=== PATIENT | female | born 1965 | race Caucasian/White ===

== ENCOUNTER 2016-07-11 09:10 | Emergency (ER) | payer BC ==
[2016-07-11 09:37] VITALS: TEMP 98.4
--- NOTE | 2016-07-11 09:40 | ED.PDOC ---
History of Present Illness - General Chief Complaint: General Stated Complaint: left arm pain,pain behind left shoulder blade Time Seen by Provider: 07/11/16 09:11 Source: patient, RN notes reviewed, Vital Signs reviewed Exam Limitations: no limitations - History of Present Illness Initial Comments: Patient reports she woke up about 7:30am today and noticed some dull pain in her L arm. Went back to sleep for a bit. When she woke up @ 8am she noticed a severe, sharp pain under her L shoulder blade. Pain is better now but is still present. She did have some SOB with the pain but no chest pain, nausea or diaphoresis. No similar episodes in past. Denies any injury or unusual activity yesterday. Timing/Duration: 1-3 hours Severity: mild Improving Factors: nothing Worsening Factors: nothing Associated Symptoms: shortness of breath Allergies/Adverse Reactions: Allergies NO KNOWN ALLERGY Allergy (Verified 07/11/16 09:29) Home Medications: Ambulatory Orders NK [NK] 07/11/16 Review of Systems - Review of Systems Constitutional: States: no symptoms reported. Denies: chills, diaphoresis, fever, malaise EENTM: States: no symptoms reported Respiratory: States: short of breath Cardiology: States: no symptoms reported. Denies: chest pain, edema, palpitations, syncope Gastrointestinal/Abdominal: States: no symptoms reported. Denies: abdominal pain, nausea, vomiting Musculoskeletal: States: see HPI, back pain Skin: States: no symptoms reported Neurological: States: no symptoms reported. Denies: numbness, paresthesia, tingling, tremors, weakness All other Systems: No Change from Baseline Past Medical History (General) - Patient Medical History Hx Congestive Heart Failure: No Hx Diabetes: No Surgical History: Hysterectomy - Vaccination History Hx Influenza Vaccination: No - Social History Hx Tobacco Use: No Family Medical History - Family History Mother Family History: Unknown Living Status: Unknown Physical Exam - Physical Exam General Appearance: Alert, Comfortable, No apparent distress, Well Developed, Well Groomed, Well Hydrated, Well Nourished Neck: non-tender, full range of motion, supple, normal inspection Respiratory: chest non-tender, lungs clear, normal breath sounds, no respiratory distress, no accessory muscle use Cardiovascular/Chest: regular rate, rhythm, no edema, no gallop, no JVD, no murmur Back Exam: normal inspection, no CVA tenderness, no vertebral tenderness, other - No palpable area of tenderness Extremity: normal range of motion - No pain with ROM of shoulder, non-tender, normal inspection, no pedal edema Neurologic: no motor/sensory deficits, alert, normal mood/affect, oriented x 3 Skin Exam: normal color, warm/dry Progress - Progress Progress: 07/11/16 11:16 Patient is feeling better. Initial cardiac workup is normal. Most likely musculoskeletal in nature. - Results/Orders Results/Orders: Laboratory Tests 07/11/16 07/11/16 09:54 09:54 WBC 4.6 L RBC 4.57 Hgb 13.5 Hct 39.5 MCV 86.4 MCH 29.6 MCHC 34.2 RDW 12.6 Plt Count 137 MPV 7.0 L Absolute Neuts (auto) 2.60 Absolute Lymphs (auto) 1.50 Absolute Monos (auto) 0.30 Absolute Eos (auto) 0.20 Absolute Basos (auto) 0.00 Neutrophils % 56.6 Lymphocytes % 32.4 Monocytes % 6.6 Eosinophils % 4.0 Basophils % 0.4 Sodium 140 Potassium 3.9 Chloride 108 Carbon Dioxide 28 Anion Gap 7.9 L BUN 15 Creatinine 0.82 BUN/Creatinine Ratio 18.3 Random Glucose 135 H Serum Osmolality 282.3 Calcium 9.0 Total Bilirubin 0.6 AST 29 ALT 54 Alkaline Phosphatase 62 Creatine Kinase 39 CK-MB (CK-2) 1.3 CK-MB (CK-2) % Not Reportable Troponin I < 0.02 Serum Total Protein 6.7 Albumin 4.1 Globulin 2.6 Albumin/Globulin Ratio 1.6 - EKG/XRAY/CT EKG: Sinus, no ST T wave changes Departure - Departure Clinical Impression: Left-sided thoracic back pain Time of Disposition: 11:22 Disposition: Discharge to Home or Self Care Condition: Good Departure Forms: ED Discharge - Pt. Copy, Patient Portal Self Enrollment Instructions: Muscle Strain Diet: resume usual diet Activity: increase activity as tolerated Referrals: Obi Saucedo MD [Primary Care Provider] - 1-2 Weeks Home Medications: Ambulatory Orders NK [NK] 07/11/16
--- NOTE | 2016-07-11 10:03 | RAD ---
PROCEDURE: Chest,2 Views CLINICAL HISTORY: L upper/post. Chest pain INDICATION: Same as above COMPARISON: None TECHNIQUE: PA and and lateral chest radiographs were obtained. FINDINGS: The lung otero are well inflated. There are no discrete airspace infiltrates, pneumothoraces or pleural effusions. The pulmonary vascularity is normal The cardiomediastinal silhouette is unremarkable for patient's age and sex. IMPRESSION: There is no acute pleural-parenchymal process seen in the imaged lung otero. Place of interpretation: T[facility]iology. Electronically signed by: Brodie Mckenzie MD 07/11/2016 10:02 AM CDT
[2016-07-11 11:29] VITALS: BP 143/93; O2SAT 99
== END 2016-07-11 11:29 | disposition home or self-care (01) ==
LOC: ER 09:10
DX: M54.6 Pain in thoracic spine (principal)

== ENCOUNTER → 2017-01-13 | Outpatient (CLI) | payer BC | LOC: MAMMO 10:30 | PROVIDERS: ATTEND Family Medicine | DX: Z12.31 Encounter for screening mammogram for malignant neoplasm of breast (principal) | CPT/HCPCS: 77063; G0202 ==

== ENCOUNTER → 2018-01-14 | Outpatient (CLI) | payer BC ==
--- NOTE | 2018-01-17 16:45 | MAM ---
EXAM DESCRIPTION: 3D Screening BILATERAL : Digital Mammography. CLINICAL HISTORY: 52 years Female SCREENING . No complaints or personal history of breast cancer. Mother with breast cancer. Childbirth. Hysterectomy 22 years ago. No HRT. Lifetime risk of developing breast cancer (Tyrer-Cuzick model)(%): 16.2. COMPARISON: Bilateral screening digital breast tomosynthesis 01/13/2017.. TECHNIQUE: Bilateral CC and MLO projection full-field images, digital tomosynthesis mammographic technique. Bilateral digital 2-D full-field MLO images. CAD not available for tomosynthesis or 2-D images. FINDINGS: The breast parenchymal density pattern is: Heterogeneously dense breast tissue, which may obscure small masses. No skin thickening or nipple retraction. Right axillary lymph nodes. Left breast solitary microcalcification. No new focal, stellate mass or density, focal asymmetry , and no suspicious microcalcifications bilaterally. Stable mammograms compared to prior study. IMPRESSION: Benign exam. BIRAD CATEGORY: 2 BENIGN FINDINGS. RECOMMENDATIONS: FOLLOW UP: Routine digital bilateral mammographic screening, one year interval from January 2018. Written communication explaining the IMPRESSION and follow-up, will be mailed to the patient and referring health care provider. According to the [employer], yearly mammograms are recommended starting at age 40 and continuing as long as a woman is in good health. Any breast change noted on a breast self-exam should be reported promptly to the patient's healthcare provider. Breast MRI is recommended for women with an approximately 20-25% or greater lifetime risk of breast cancer, including women with a strong family history of breast or ovarian cancer and women who have been treated for Hodgkin's disease. A negative mammographic report should not delay tissue diagnosis in patients with significant clinical history or physical findings. Extremely dense breast tissue limits the sensitivity of digital mammography. Electronically signed by: Devon Reyes MD 01/17/2018 4:44 PM [employer]IGIBILITY [employer]AM[employer]ER
== END ==
LOC: MAMMO 13:09
PROVIDERS: ATTEND Family Medicine
DX: Z12.31 Encounter for screening mammogram for malignant neoplasm of breast (principal)

== ENCOUNTER → 2018-09-22 | Outpatient (CLI) | payer BC ==
--- NOTE | 2018-09-22 17:26 | RAD ---
EXAM DESCRIPTION: Chest,2 Views CLINICAL HISTORY: 53 years Female CHEST PAIN COMPARISON: None TECHNIQUE: Two view study of the chest was performed. FINDINGS: Cardiac size is within normal limits. Central vessels are not increased. No infiltrates or effusions seen. No consolidation. No pneumothorax. Moderate degenerative change thoracic spine. IMPRESSION: No active disease. Electronically signed by: Basilia Arango MD 09/22/2018 5:24 PM CDT
--- NOTE | 2018-09-22 17:27 | RAD ---
EXAM DESCRIPTION: Sternum CLINICAL HISTORY: 53 years Female CHEST PAIN COMPARISON: None TECHNIQUE: Two images of the sternum were obtained. FINDINGS: No fracture seen. Normal bony mineralization. No erosive or lytic lesions. IMPRESSION: No bony abnormality noted. No fracture seen. Electronically signed by: Basilia Arango MD 09/22/2018 5:25 PM CDT
== END ==
LOC: RAD 17:02
PROVIDERS: ATTEND Nurse Practitioner Family
DX: R07.9 Chest pain, unspecified (principal)

== ENCOUNTER → 2018-11-14 | Outpatient (CLI) | payer BC | LOC: LAB.O 11:19 | PROVIDERS: ATTEND Nurse Practitioner Family | DX: A08.4 Viral intestinal infection, unspecified (principal) ==

== ENCOUNTER → 2020-04-04 | Outpatient (CLI) | payer BC | LOC: YCFC.O 09:33 | PROVIDERS: ATTEND Family Medicine | DX: Z00.00 Encounter for general adult medical examination without abnormal findings (principal); E78.5 Hyperlipidemia, unspecified; Z13.29 Encounter for screening for other suspected endocrine disorder; Z13.0 Encounter for screening for diseases of the blood and blood-forming organs and certain disorders involving the immune mechanism ==